=== PATIENT | male | born 1950 | race Caucasian/White ===

== ENCOUNTER → 2021-05-27 | Outpatient (CLI) | payer MEDICARE | LOC: M.RAD 10:56 | PROVIDERS: ATTEND Internal Medicine | DX: M47.814 Spondylosis without myelopathy or radiculopathy, thoracic region (principal); M85.88 Other specified disorders of bone density and structure, other site; M47.818 Spondylosis without myelopathy or radiculopathy, sacral and sacrococcygeal region; M48.07 Spinal stenosis, lumbosacral region; M25.78 Osteophyte, vertebrae; M19.011 Primary osteoarthritis, right shoulder; G89.29 Other chronic pain ==